=== PATIENT | female | born 1985 | race Caucasian/White ===

== ENCOUNTER 2017-05-15 18:01 | Emergency (ER) | payer OTHER ==
[~2017-05-15] VITALS: Ht 167.6 cm; Wt 89.8 kg
[~2017-05-15 18:01] MED LIST: ALBUTEROL2.5 MG/31 INH; AMOXIL 875 MG875 M1 PO; AURALGAN EAR DR14 ML OTIC; IBUPROFEN; KEFLEX500 MG PO; NAPROSYN500 MG PO; NORCO 5-325 TA1 EACH PO; PREDNISONE 20 M20 M1 PO; PROAIR HFA8.5 GM INH; SILVADENE20 GM TP; VICODIN 5-5001 EACH PO; XANAX 0.25 MG0.25 MG; XANAX 0.5 MG0.5 M1; XANAX 1 MG TABLE1 MG PO; penicillin
[2017-05-15] MEDS ORDERED: CELEXA20 MG PO (18:21)
[2017-05-15] MEDS ORDERED: BUSPIRONE HCL10 MG PO (18:21)
[2017-05-15] MEDS ORDERED: LORAZEPAM 0.50.5 MG PO (18:21)
[2017-05-15] MEDS ORDERED: IBUPROFEN 800800 MG PO (19:37)
[2017-05-15] MEDS ORDERED: PERCOCET 5-3251 EACH PO (19:37)
[2017-05-15 20:18] VITALS: BP 116/65
== END 2017-05-15 20:18 | disposition home or self-care (01) ==
LOC: M.ERS 18:01
DX: S93.492A Sprain of other ligament of left ankle, initial encounter (principal); S93.692A Other sprain of left foot, initial encounter; S92.002A Unspecified fracture of left calcaneus, initial encounter for closed fracture; F41.9 Anxiety disorder, unspecified; X50.1XXA Overexertion from prolonged static or awkward postures, initial encounter; Y93.89 Activity, other specified; Y92.89 Other specified places as the place of occurrence of the external cause; Y99.8 Other external cause status

== ENCOUNTER 2018-05-23 20:09 | Emergency (ER) | payer OTHER ==
[~2018-05-23] VITALS: Ht 167.6 cm; Wt 86.2 kg
[~2018-05-23 20:09] MED LIST changes: +BUSPIRONE HCL10 MG PO; +CELEXA20 MG PO; +IBUPROFEN 800800 MG PO; +LORAZEPAM 0.50.5 MG PO; +PERCOCET 5-3251 EACH PO
[2018-05-23] MEDS ORDERED: BACITRAYCIN PLU28 GM TOP (20:43)
[2018-05-23] MEDS ORDERED: PERCOCET 5-3251 EACH PO (20:49)
[2018-05-23 21:10] VITALS: BP 130/93
== END 2018-05-23 21:10 | disposition home or self-care (01) ==
LOC: M.ERS 20:09
DX: T23.252A Burn of second degree of left palm, initial encounter (principal); T31.0 Burns involving less than 10% of body surface; F41.9 Anxiety disorder, unspecified; F17.210 Nicotine dependence, cigarettes, uncomplicated; Z98.890 Other specified postprocedural states; Z90.49 Acquired absence of other specified parts of digestive tract; X15.3XXA Contact with hot saucepan or skillet, initial encounter; Y93.89 Activity, other specified; Y92.89 Other specified places as the place of occurrence of the external cause; Y99.8 Other external cause status

== ENCOUNTER 2019-08-30 07:48 | Emergency (ER) | payer OTHER ==
[~2019-08-30] VITALS: Ht 167.6 cm; Wt 85.7 kg
[~2019-08-30 07:48] MED LIST changes: +BACITRAYCIN PLU28 GM TOP
[2019-08-30] MEDS ORDERED: BUSPIRONE HCL10 MG PO (08:05)
[2019-08-30] MEDS ORDERED: KLONOPIN0.5 MG PO (08:05)
[2019-08-30 08:58] LABS: ABSOLUTE BASOPHILS 0.1 thou/uL (0.0-0.2); ABSOLUTE EOSINOPHILS 0.4 thou/uL (0.0-0.7); ABSOLUTE LYMPHOCYTES 3.7 thou/uL (0.8-5.3); ABSOLUTE MONOCYTES 1.1 thou/uL (0.0-1.2); ABSOLUTE NEUTROPHILS 11.2 thou/uL (1.6-8.1); BASOPHILS 0.7 %; EOSINOPHILS 2.7 %; HEMATOCRIT 42.4 % (37.0-47.0); HEMOGLOBIN 14.4 gm/dL (12.0-15.0); LYMPHOCYTES 22.7 %; MCH 29.9 pg (26.0-34.0); MCV 87.8 fL (80.0-100.0); MONOCYTES 6.4 %; MPV 9.1 fl. (7.2-11.1); NUCLEATED RBCS 0 /100WBC; PLATELET COUNT* 264 thou/uL (150-400); POLYS 67.5 %; RBC 4.83 mil/uL (4.20-5.00); RDW-CV 12.9 % (10.5-14.5); WBC 16.5 thou/uL (4.0-11.0)
[2019-08-30 09:04] LABS: CALCIUM 9.1 mg/dL (8.5-10.1); CREATININE 0.7 mg/dL (0.6-1.3); POTASSIUM 4.2 mmol/L (3.5-5.1)
[2019-08-30 09:09] LABS: ALBUMIN 3.9 g/dL (3.4-5.0); TOTAL BILIRUBIN 0.2 mg/dL (<0.1-1.0); TOTAL PROTEIN 7.9 g/dL (6.4-8.2)
[2019-08-30] MEDS ORDERED: CEFPODOXIME PR200 M1 PO (09:47)
[2019-08-30] MEDS ORDERED: AZITHROMYCIN 2250 MG PO (09:47)
[2019-08-30] MEDS ORDERED: NORCO 5-325 TA1 EAC2 PO (09:47)
[2019-08-30] MEDS ORDERED: VIBRAMYCIN 100100 MG PO (09:52)
[2019-08-30 10:12] VITALS: BP 137/86
--- NOTE | 2019-08-30 12:18 | EKG ---
[place] [address] ELECTROCARDIOGRAM REPORT Name: YAIR ANDERS Room: [facility]#: [id number] Admission: 08/30/19 Attend Phys: Discharge: 08/30/19 Date of : 89 Date of Service: 08/30/19 0759 Report #: [id number] THIS REPORT FOR: //name// [facility] ED Test Date: 2019-08-30 Test Time: 07:59:16 Pat Name: YAIR ABDI Department: Room: Gender: F Record Searcher: [facility] : 1985 Requested By: Kye Melendez Order Number: [id number] Reading MD: Luis Cherry Measurements Intervals [place] Rate: 90 P: 56 TX: 141 QRS: 51 QRSD: 110 T: 41 QT: 367 QTc: 449 Interpretive Statements Sinus rhythm wandering baseline Probable left atrial enlargement RSR' in V1 or V2, right VCD or RVH Compared to ECG 03/08/2015 20:44:42 Sinus arrhythmia no longer present Electronically Signed On 08-30-2019 12:17:33 CDT by Luis Cherry [email or web address] <ELECTRONICALLY SIGNED> By: Luis Cherry MD, [facility] 08/30/19 1217 0759 0759 Luis Cherry MD, [facility] /EPI
== END 2019-08-30 10:13 | disposition home or self-care (01) ==
LOC: M.ERS 07:48
PROVIDERS: Emergency Medicine
DX: J18.8 Other pneumonia, unspecified organism (principal); F17.210 Nicotine dependence, cigarettes, uncomplicated; F41.9 Anxiety disorder, unspecified; R07.89 Other chest pain; Z98.51 Tubal ligation status; Z90.49 Acquired absence of other specified parts of digestive tract; Z79.899 Other long term (current) drug therapy